=== PATIENT | male | born 1945 | race Caucasian/White ===

== ENCOUNTER 2018-07-29 03:32 | Inpatient (IN) ==
[2018-07-29 03:46] LABS: Basophils # 0.1 K/mm3 (0-0.2); Basophils % 0.3 % (0.1-2.0); Eosinophils % 0.2 % (0.1-12.0); Hematocrit 44.6 % (42.0-52.0); Hemoglobin 14.6 g/dL (14.1-18.0); Lymphocytes # 2.3 K/mm3 (0.7-4.5); Lymphocytes % 12.5 % (10-50); Mean Corpuscular HGB Conc 32.7 g/dL (31.8-35.4); Mean Corpuscular Hemoglobin 29.4 pg (27.0-31.2); Mean Corpuscular Volume 89.8 fl (80-94); Mean Platelet Volume 9.1 fl (7.4-10.4); Monocytes # 1.2 K/mm3 (0.1-1.0); Monocytes % 6.5 % (1.7-9.3); Neutrophils % 80.6 % (37.0-80.0); Platelet Count 302 K/mm3 (142-424); Red Blood Count 4.96 M/mm3 (4.60-6.20); Red Cell Distribution Width 13.9 % (11.5-17.5); White Blood Count 18.6 K/mm3 (4.8-10.8)
[2018-07-29 04:03] LABS: Anion Gap 18.9 mEq/L (5-15); Potassium 3.9 mmoL/L (3.5-5.1)
--- NOTE | 2018-07-29 04:25 | Emergency Department Note ---
ED Disposition Clinical Impression: Tobacco use ST elevation myocardial infarction (STEMI) Qualifiers: Involved coronary artery: unspecified coronary artery Qualified Code(s): I21.3 - ST elevation (STEMI) myocardial infarction of unspecified site Disposition: Admitted As Inpatient Condition on Discharge: Serious Referrals: Provider,Referral, [Primary Care Provider] - - Critical Care Critical Care Time: Yes Attestation: On 07/29/18, the high probability of a clinically significant, sudden or life threatening deterioration of the following system(s) required my full and direct attention, intervention and personal management. The time I documented below is in addition to time spent performing reported procedures but includes the following listed in this critical care notation. Total Critical Care Time: 120 Vital system(s) involved:: Circulatory Failure My critical care processes included: Assessment & monitoring of V/S, Initial and Re-exams, Data Review/Interpretation, Coordinating Care, Medication Orders and management, Documentation Medical Decision Making - Medical Records Medical records reviewed: Yes: I reviewed the patient's medical records. - [place] Inquiry Pt receiving controlled substance: No Vital Signs: 07/29/18 03:22 07/29/18 03:52 07/29/18 04:08 Temperature 98 F Temperature Source Oral Pulse Rate [Right Radial] 113 H 106 H 106 H Respiratory Rate 16 18 18 Blood Pressure [Right Arm] 123/75 116/73 115/77 Blood Pressure Mean [Right Arm] 91 87 89 Blood Pressure Source [Right Arm] Automatic Cuff Automatic Cuff Blood Pressure Position [Right Arm] Supine Supine 02 Sat by Pulse Oximetry 97 98 95 Oxygen Delivery Method Room Air Room Air - Lab Data Lab results reviewed: Yes: I reviewed the patient's lab results. Lab Results 07/29/18 03:30: WBC 18.6 H, RBC 4.96, Hgb 14.6, Hct 44.6, MCV 89.8, MCH 29.4, MCHC 32.7, RDW 13.9, Plt Count 302, MPV 9.1, Neut % (Auto) 80.6 H, Lymph % (Auto) 12.5, [place] % (Auto) 6.5, Eos % (Auto) 0.2, Baso % (Auto) 0.3, Neut # (Auto) 15.0 H, Lymph # (Auto) 2.3, [place] # (Auto) 1.2 H, Eos # (Auto) 0.0, Baso # (Auto) 0.1 07/29/18 03:30: Sodium 136, Potassium 3.9, Chloride 99, Carbon Dioxide 22, Anion Gap 18.9 H, BUN 22 H, Creatinine 1.01, Estimated Creat Clear 77, Estimated GFR 72, Est GFR ( Amer) 88, Glucose 124 H, Calcium 9.0, Troponin I 40.87 H Result diagrams: 07/29/18 03:30 07/29/18 03:30 Orders (Tests/Meds): ED MEDICATIONS Generic Name Dose Route Start Last Admin Trade Name Freq PRN Reason Stop Dose Admin Nitroglycerin/Dextrose 250 mls @ 3 mls/hr 07/29/18 04:15 Nitroglycerin 50mg/250ml D5w IV 08/28/18 04:14 .Q24H SHIRA Protocol 10 MCG/MIN Discontinued Medications Generic Name Dose Route Start Last Admin Trade Name Freq PRN Reason Stop Dose Admin Nitroglycerin 1 gm 07/29/18 03:28 07/29/18 03:33 Nitroglycerin 1 Inch Oint Udp TD 07/29/18 03:29 1 gm ONCE ONE Administration ORDERS Category Date Time Status XR chest 2V Stat Exams 07/29/18 03:28 Taken Complete Blood Count Auto Diff Stat Lab 07/29/18 03:30 Results 12-lead EKG Request [ECG Request by /Arnoldo] Stat Y 07/29/18 04:11 Ordered - Radiology Data #1 Image(s): Chest Image Reviewed: Yes I reviewed the patient's radiology image Preliminary Findings: Normal/NAD - ECG Data Tracing #1 Arrhythmias present: sinus tach Ischemic changes: other (st depression) ECG compared to prior tracings: there are no prior tracings available for comparison Tracing #2 Arrhythmias present: sinus tach Ischemic changes: other (st depression) Tracing #3 Normal Sinus Rhythm: Yes Ischemic changes: acute STEMI, ST elevation - Physician Consults Physician Consulted: basil Reason -: Pt condition Additional Consult: sound Reason -: Admission Chest Pain HPI - General Chief Complaint: Chest Pain Stated Complaint: Chest Pain Time Seen by Provider: 07/29/18 03:35 Mode of Arrival: EMS Source of Information: Patient, EMS, Medical Record Limitations: No Limitations Description of Symptoms (Recalled from ER Triage Doc. by RN): pt states he began having chest pain at approx 0100 this am. 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 pt states his pain has improved and is rating pain midsternal at a 6/10. - History of Present Illness HPI narrative: acute onset of ant chest pain tonight at rest and has had pain like this in past which has went away but not tonight - no known heart disease and he has no diabetes but does smoke no gi bleed - MD complaint: chest pain indicative of cardiac Onset (ago): hour(s) Duration: constant Activity at onset: during rest Pain location: substernal Severity: severe Quality: sharp Pain radiation: LUE Associated symptoms: nausea Risk Factors for CAD: Family Hx of CAD, Smoking Treatments prior to or on arrival for Cardiac Chest Pain: aspirin, nitroglycerin - KODAK Score Non-Stemi Age of patient: 65 yrs or more Number of risk factors for CAD: Presence of 3 or more Prior coronary artery stenosis(seen in coronary angiography): Less than 50% ST-Segment deviation on ECG (more than 1 min): Present Prior aspirin intake: No ASA in the last 7 days Severe anginal chest pain: Two or more episodes in last 24 hours Elevated cardiac markers(CK-MB or troponin): Present Non-Stemi Risk Score: 5 - Related Data Home Medications Medication Instructions Recorded Confirmed Gabapentin [Neurontin 300mg 300 mg PO BID 07/29/18 07/29/18 capsule] Allergies Allergy/AdvReac Type Severity Reaction Status Date / Time No Known Allergies Allergy Verified 07/29/18 03:[address] [facility] History I have reviewed the patient's past medical history: Yes Medical History: Denies:: Cancer, Diabetes Mellitus Type 1, Diabetes Mellitus Type 2, MRSA Amputation: No - Social History Smoking Status: Current every day smoker Alcohol Intake: never - Psychiatric History Expresses thoughts of harming self/others: None Suicide Plan Description: No Plan ROS Obtained: Yes All systems reviewed & no additional complaints - Constitutional Constitutional: Denies fever(s) - Eyes Eyes: Denies change in vision - ENT Ears, Nose, Mouth, and Throat: Denies sore throat - Cardiovascular Cardiovascular: Reports chest pain - Respiratory Respiratory: No cough - Gastrointestinal Gastrointestingal: Denies: abdominal pain - Genitourinary Male Genitourinary: Denies hematuria - Musculoskeletal Musculoskeletal: Denies joint pain - Integumentary/Breasts Skin/Breast: Denies rash - Neurologic Neurologic: Denies seizure-like activity Physical Exam - General General appearance: alert - Head Head exam: normocephalic - Eye Eye exam: Present: PERRL, EOMI - ENT ENT exam: Present: mucous membranes dry - Neck Neck exam: Present: trachea midline - Respiratory Respiratory exam: Present: normal lung sounds bilaterally - Cardiovascular Cardiovascular exam: Present: regular rate, systolic murmur, +S4 - Abdominal Exam Abdominal exam: Present: soft - Extremities Exam Extremities exam: Absent: calf tenderness - Neurological Exam Neurological exam: Present: alert, oriented X3, CN II-XII intact - Psychiatric Psychiatric exam: Present: normal affect - Skin Skin exam: Absent: rash
[2018-07-29 06:25] LABS: Anisocytosis 1+; Lymphocytes % 14 % (10-50); Monocytes % 4 % (2-9); Neutrophils % 81 % (42-76); Stomatocytes 1+; Total Cells Counted 100
--- NOTE | 2018-07-29 07:52 | Pharmacy Consult Notes ---
[facility] Pharmacy VTE Monitoring - Patient Demographics Admission date: 07/29/18 Report Date: 07/29/18 Time: 07:51 Allergies/Adverse Reactions: Patient Allergies No Known Allergies Allergy (Verified 07/29/18 03:27) Height: 1.83 m Weight: 83.915 kg Patient Problems: Current Active Problems ST elevation myocardial infarction (STEMI) (Acute) Tobacco use (Acute) - VTE Risk Labs: VTE Related Lab Results Hgb 14.6 g/dL (14.1-18.0) 07/29/18 03:30 Hct 44.6 % (42.0-52.0) 07/29/18 03:30 Plt Count 302 K/mm3 (142-424) 07/29/18 03:30 BUN 22 mg/dL (7-18) H 07/29/18 03:30 Creatinine 1.01 mg/dL (0.70-1.30) 07/29/18 03:30 Estimated Creat Clear 77 mL/min (50-200) 07/29/18 03:30 - Prophylaxis VTE Prophylaxis Ordered?: Yes Types of VTE Prophylaxis: TEDS Knee High Location of Applied Device: Bilateral Lower Extremeties - VTE Diagnosis Confirmed Treatment or plan recommended: Continue Current Treatment
--- NOTE | 2018-07-29 09:04 | Consult Report ---
Addendum entered and electronically signed by LUZMA Cam 07/29/18 15:29: Called by nursing staff to see patient about 1500 due to low blood pressure and a change in rate and rhythm. Systolic pressure was noted to be at 62 mmHg with telemetry and EKG showing sinus bradycardia with intermittent dropped beats in a bigeminal and trigeminal pattern. Patient did receive 3 different beta-severino doses today including metoprolol, Coreg and bisoprolol which is likely the reason for the hypotension and bradycardia, there does not appear to be any indication of sepsis. Patient was placed in Trendelenburg position, given IV fluid bolus and started on IV Adis-Synephrine with half milligram of glucagon to try and counteract the effect of the beta-severino. Within minutes the patient's blood pressure and cardiac rate and rhythm stabilized with sinus rhythm in the 80s. Patient was awake and talking again. Parameters for the Adis-Synephrine are heart rate above 60 but below 100 bpm and systolic blood pressure above 90 mm Hg. Patient will need to remain in the hospital through the weekend. Original Note: History of Present Illness Consult date: 07/29/18 Requesting physician: Margaret Frausto Consult reason: chest pain Chief complaint: chest pain, STEMI Additional Medical History:: 1. tobacco use, ongoing 2. History of chronic pain for which she takes gabapentin 3. Coronary artery disease A. Acute ST elevation [place], 07/29/2018 B. Cardiac catheterization revealing Critical ostial proximal left main disease. Successful stenting of the ostial proximal left main artery critical disease reduced to 0% with 1 drug-eluting stent. Moderate disease in the mid LAD. Ostially occluded dominant right coronary artery which fills via left to right collaterals. Severe left ventricular dysfunction with reduced ejection fraction at 35%. Severely elevated LVEDP History of present illness: 73-year-old white male tobacco user with history of chronic pain syndrome presented to the emergency department for unrelenting chest and left arm discomfort. Patient relates intermittent activity related discomfort for several months but with onset of symptoms about 1:00 yesterday afternoon that did not resolve with rest. EKG in the emergency department showed acute ST elevation NE with inferior and anterior ST elevation. Patient was taken urgently to the cardiac Application Manager which revealed ostial left main stenosis which was successfully stented. Patient has a chronic RCA occlusion with left to right collaterals. Ejection fraction noted to be 35% with a left ventricular end-diastolic pressure of 40 mmHg. [facility] History Medical History: Denies:: Cancer, Diabetes Mellitus Type 1, Diabetes Mellitus Type 2, MRSA Amputation: No - *Social History Smoking Status: Current every day smoker Alcohol Intake: never - Psychiatric History Expresses thoughts of harming self/others: None Suicide Plan Description: No Plan Meds Home Medications Medication Instructions Recorded Confirmed Type Gabapentin [Neurontin 300mg 300 mg PO BID 07/29/18 07/29/18 History capsule] Allergies Allergy/AdvReac Type Severity Reaction Status Date / Time No Known Allergies Allergy Verified 07/29/18 03:27 Review of Systems - *Cardiovascular Reports chest pain, Reports shortness of breath, Reports shortness of breath with activity - *Respiratory Reports shortness of breath, Reports shortness of breath with activity - *Gastrointestinal Denies abdominal pain - *Genitourinary Denies blood in urine - *Musculoskeletal Reports joint pain - *Neurologic Denies seizure-like activity Exam Vital signs and Labs for Last 24 Hours: Temp Pulse Resp BP Pulse Ox 99.5 F 108 H 22 133/74 93 L 07/29/18 07:25 07/29/18 07:25 07/29/18 07:25 07/29/18 07:25 07/29/18 07:25 Laboratory Results - last 24 hr 07/29/18 03:30: WBC 18.6 H, RBC 4.96, Hgb 14.6, Hct 44.6, MCV 89.8, MCH 29.4, MCHC 32.7, RDW 13.9, Plt Count 302, MPV 9.1, Neut % (Auto) 80.6 H, Lymph % (Auto) 12.5, [place] % (Auto) 6.5, Eos % (Auto) 0.2, Baso % (Auto) 0.3, Neut # (Auto) 15.0 H, Lymph # (Auto) 2.3, [place] # (Auto) 1.2 H, Eos # (Auto) 0.0, Baso # (Auto) 0.1, Total Counted 100, Neutrophils % (Manual) 81 H, Lymphocytes % (Manual) 14, Monocytes % (Manual) 4, Basophils % (Manual) 1.0, Platelet Estimate Normal, Anisocytosis 1+, Stomatocytes 1+ 07/29/18 03:30: Sodium 136, Potassium 3.9, Chloride 99, Carbon Dioxide 22, Anion Gap 18.9 H, BUN 22 H, Creatinine 1.01, Estimated Creat Clear 77, Estimated GFR 72, Est GFR ( Amer) 88, Glucose 124 H, Calcium 9.0, Troponin I 40.87 H I & O for Last 24 hours: Intake & Output 07/26/18 07/27/18 07/28/18 07/29/18 11:59 11:59 11:59 11:59 Intake Total 620 / 620 Balance 620 / 620 Weight 185 lb - *Routine Neck Exam Present: supple. Absent: JVD, carotid bruit - *Routine Respiratory Exam Present: CTA bilaterally. Absent: accessory muscle use, rales, rhonchi, wheezes - *Routine Cardiovascular Exam Present: RRR. Absent: murmur, gallop, rubs - *Routine Abdominal Exam Present: soft. Absent: tenderness, distended, guarding - *Routine Extremities Exam Absent: edema, calf tenderness - *Routine Neurological Exam Present: alert, oriented X3, moving all extremities Assessment and Plan (1) Ischemic cardiomyopathy Current visit: Yes Status: Acute Category: Medical Code(s): I25.5 - Ischemic cardiomyopathy (2) Systolic congestive heart failure with reduced left ventricular function, NYHA class 3 Current visit: Yes Status: Acute Category: Medical Code(s): I50.20 - Unspecified systolic (congestive) heart failure (3) Chronic pain syndrome Current visit: Yes Status: Acute Category: Medical Code(s): G89.4 - Chronic pain syndrome (4) ST elevation myocardial infarction (STEMI) Current visit: Yes Status: Acute Qualifiers: Involved coronary artery: unspecified coronary artery Qualified Code(s): I21.3 - ST elevation (STEMI) myocardial infarction of unspecified site Category: Medical Code(s): I21.3 - ST elevation (STEMI) myocardial infarction of unspecified site (5) Tobacco use Current visit: Yes Status: Acute Category: Medical Code(s): Z72.0 - Tobacco use - Assessment and plan all Dx Assessment and Plan for all problems:: 1. Continue aspirin and Brilinta. 2. Start ROD inhibitor and carvedilol or bisoprolol therapy due to reduced systolic ejection fraction and tachycardia. 3. Will obtain an echocardiogram to further define the patient's left ventricular size and function and valve status.
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
--- NOTE | 2018-07-29 13:30 | Cardiology Report ---
PROCEDURE: 2-D M-mode and color Doppler study INDICATIONS FOR THE TEST: Chest pain+ COPD Heart Murmur Tobacco Smoking+ Palpitations Fatigue Syncope Edema Hypertension Diabetes Mellitus Rheumatic Fever SOB+GUZMAN Obesity Hyperlipidemia Family History HD Additional History STEMI 07/29/18, EF 35% on cath, CM, CHF PATIENT INFORMATION HEIGHT: 72 WEIGHT: 185 GENDER: Male B/P: 96/67 2-D/M-MODE INTERPRETATION: 2-D MEASUREMENTS OBSERVED VALUES IN CMS Right Ventricular Dimension (RVDd) 2.7 Interventricular Septum (Thickness)(IVsd) 1.2 Left Ventricular Internal Dimensions(LVIDd) 5.2 Left Ventricular Posterior Wall (Thickness)(LVPWd) 1.2 Aortic Root 3.2 Aortic Cusp Separation 1.9 Left Atrial Dimensions (LAD) 4.3 2D 1. Technically difficult study because of the patient's factor and poor acoustic windows, repeat study with Definity contrast is recommended. 2. The left atrium is mildly enlarged, left ventricle is normal size, mild concentric left ventricular hypertrophy, visually estimated ejection fraction is probably 40%, there appears to be inferobasal, distal septum and apical wall hypokinesis. A repeat study with Definity contrast is recommended. 3. The right atrium and right ventricle are mildly enlarged with normal contractility. 4. The aortic valve is minimally thickened and fibrosed. 5. The mitral and tricuspid valve leaflets are minimally thickened. 6. The pulmonic valve is poorly visualized. 7. No significant pericardial effusion noted. DOPPLER INTERROGATION: Doppler interrogation of the aortic, mitral and tricuspid valvular presence of moderate mitral and mild tricuspid regurgitation, tricuspid regurgitation jet velocity is inadequate for calculation of the right ventricular systolic pressure, grade 1 diastolic dysfunction seen with tissue Doppler evidence of raised left atrial pressure. CONCLUSION: 1. Technically difficult study because of the patient's factors and poor acoustic windows, repeat study with Definity contrast is recommended. 2. Mildly enlarged left atrium, normal left ventricular size, mild concentric left ventricular hypertrophy, visually estimated ejection fraction 40% with multiple segmental wall motion abnormality described above, repeat study with Definity contrast is recommended. 3. Moderate mitral and mild tricuspid regurgitation 4. Grade 1 diastolic dysfunction seen with tissue Doppler evidence of raised left atrial pressure. 5. No significant pericardial effusion noted.
[2018-07-30 07:35] LABS: Basophils # 0.1 K/mm3 (0-0.2); Basophils % 0.2 % (0.1-2.0); Hematocrit 38.8 % (42.0-52.0); Hemoglobin 12.5 g/dL (14.1-18.0); Lymphocytes # 3.5 K/mm3 (0.7-4.5); Lymphocytes % 13.4 % (10-50); Mean Corpuscular HGB Conc 32.2 g/dL (31.8-35.4); Mean Corpuscular Hemoglobin 29.5 pg (27.0-31.2); Mean Corpuscular Volume 91.5 fl (80-94); Mean Platelet Volume 8.8 fl (7.4-10.4); Monocytes # 1.8 K/mm3 (0.1-1.0); Monocytes % 6.9 % (1.7-9.3); Neutrophils # 20.5 K/mm3 (1.8-7.8); Neutrophils % 79.4 % (37.0-80.0); Platelet Count 312 K/mm3 (142-424); Red Blood Count 4.24 M/mm3 (4.60-6.20); Red Cell Distribution Width 14.1 % (11.5-17.5); White Blood Count 25.8 K/mm3 (4.8-10.8)
[2018-07-30 07:46] LABS: Chol/HDL Ratio 8.3 (1-3.5)
--- NOTE | 2018-07-30 09:07 | Progress Note ---
Addendum entered and electronically signed by LUZMA Jefferson 07/30/18 09:26: Abx changed from doxy to zosyn and levaquin d/t elevated WBC. Sputum and blood cultures have been ordered. Original Note: <Ailin Osborn - Last Filed: 07/30/18 09:04> Internal Medicine - PN: Subj *Date: 07/30/18 *Time: 09:04 Interval history: Patient did not have a good day yesterday. According to nursing staff, his blood pressure decreased and cardiology had to come and see him and adjust medications and place him on a Adis-Synephrine drip. His white blood cell count has increased and he has had some blood in his stool. The patient states he was able to rest last night because he was given some medication to help him sleep. His blood pressure is stable this morning on the drip. Exam Vital signs and Labs for Last 24 Hours: Temp Pulse Resp BP Pulse Ox 98.7 F 82 18 104/67 L 95 07/29/18 21:19 07/30/18 06:00 07/29/18 21:19 07/30/18 06:00 07/30/18 08:34 Laboratory Results - last 24 hr 07/29/18 03:30: Magnesium 2.3 H 07/29/18 14:35: POC Glucose 144 H 07/29/18 17:02: Stool Occult Blood Positive A 07/30/18 07:10: WBC 25.8 H* D, RBC 4.24 L, Hgb 12.5 L, Hct 38.8 L, MCV 91.5, MCH 29.5, MCHC 32.2, RDW 14.1, Plt Count 312, MPV 8.8, Neut % (Auto) 79.4, Lymph % (Auto) 13.4, [place] % (Auto) 6.9, Eos % (Auto) 0.0 L, Baso % (Auto) 0.2, Neut # (Auto) 20.5 H, Lymph # (Auto) 3.5, Long # (Auto) 1.8 H, Eos # (Auto) 0.0, Baso # (Auto) 0.1 07/30/18 07:10: Triglycerides 139, Cholesterol 182, LDL Cholesterol 132 H, VLDL Cholesterol 28, HDL Cholesterol 22 L, Cholesterol/HDL Ratio 8.3 H I & O for Last 24 hours: Intake & Output 07/27/18 07/28/18 07/29/18 07/30/18 11:59 11:59 11:59 11:59 Intake Total 620 / 620 3390 / 3390 Output Total 400 / 400 925 / 925 Balance 220 / 220 2465 / 2465 Weight 185 lb 196 lb 9 oz - *Routine Respiratory Exam Present: wheezes (faint throughout), crackles (right base) - *Routine Cardiovascular Exam Present: RRR - *Routine Abdominal Exam Present: soft, normoactive bowel sounds. Absent: tenderness - *Routine Extremities Exam Present: edema (trace). Absent: cyanosis, clubbing Assessment and Plan (1) Ischemic cardiomyopathy Current visit: Yes Status: Acute Category: Medical Code(s): I25.5 - Ischemic cardiomyopathy (2) Systolic congestive heart failure with reduced left ventricular function, NYHA class 3 Current visit: Yes Status: Acute Category: Medical Code(s): I50.20 - Unspecified systolic (congestive) heart failure (3) Chronic pain syndrome Current visit: Yes Status: Acute Category: Medical Code(s): G89.4 - Chronic pain syndrome (4) ST elevation myocardial infarction (STEMI) Current visit: Yes Status: Acute Qualifiers: Involved coronary artery: unspecified coronary artery Qualified Code(s): I21.3 - ST elevation (STEMI) myocardial infarction of unspecified site Category: Medical Code(s): I21.3 - ST elevation (STEMI) myocardial infarction of unspecified site (5) Tobacco use Current visit: Yes Status: Acute Category: Medical Code(s): Z72.0 - Tobacco use (6) Right lower lobe pneumonia Current visit: Yes Status: Acute Qualifiers: Pneumonia type: due to unspecified organism Qualified Code(s): J18.1 - Lobar pneumonia, unspecified organism Category: Medical Code(s): J18.1 - Lobar pneumonia, unspecified organism - Assessment and plan all Dx Assessment and Plan for all problems:: Will likely need an antibiotic change due to increased white blood cell count even on doxycycline with his pneumonia. Nursing is holding his lisinopril this morning due to the fact that he is on the Adis-Synephrine drip. His H&H has dropped slightly and his stool was positive for blood. Will discuss further care with Dr. corona. Margaret Krause - Last Filed: 07/30/18 10:50> Exam Vital signs and Labs for Last 24 Hours: Temp Pulse Resp BP Pulse Ox 98.7 F 90 18 104/67 L 95 07/29/18 21:19 07/30/18 08:00 07/29/18 21:19 07/30/18 06:00 07/30/18 08:34 Laboratory Results - last 24 hr 07/29/18 03:30: Magnesium 2.3 H 07/29/18 14:35: POC Glucose 144 H 07/29/18 17:02: Stool Occult Blood Positive A 07/30/18 07:10: WBC 25.8 H* D, RBC 4.24 L, Hgb 12.5 L, Hct 38.8 L, MCV 91.5, MCH 29.5, MCHC 32.2, RDW 14.1, Plt Count 312, MPV 8.8, Neut % (Auto) 79.4, Lymph % (Auto) 13.4, Long % (Auto) 6.9, Eos % (Auto) 0.0 L, Baso % (Auto) 0.2, Neut # (Auto) 20.5 H, Lymph # (Auto) 3.5, Long # (Auto) 1.8 H, Eos # (Auto) 0.0, Baso # (Auto) 0.1, Total Counted 100, Neutrophils % (Manual) 82 H, Lymphocytes % (Manual) 11, Monocytes % (Manual) 7, Platelet Estimate Normal, RBC Morphology Normal 07/30/18 07:10: Triglycerides 139, Cholesterol 182, LDL Cholesterol 132 H, VLDL Cholesterol 28, HDL Cholesterol 22 L, Cholesterol/HDL Ratio 8.3 H I & O for Last 24 hours: Intake & Output 07/27/18 07/28/18 07/29/18 07/30/18 11:59 11:59 11:59 11:59 Intake Total 620 / 620 3390 / 3390 Output Total 400 / 400 925 / 925 Balance 220 / 220 2465 / 2465 Weight 185 lb 196 lb 9 oz Assessment and Plan (1) Sepsis Current visit: Yes Status: Acute Qualifiers: Sepsis type: sepsis due to unspecified organism Qualified Code(s): A41.9 - Sepsis, unspecified organism Category: Medical Code(s): A41.9 - Sepsis, unspecified organism 2/2 RLL PNA. (2) Ischemic cardiomyopathy Current visit: Yes Status: Acute Category: Medical Code(s): I25.5 - Ischemic cardiomyopathy (3) Systolic congestive heart failure with reduced left ventricular function, NYHA class 3 Current visit: Yes Status: Acute Category: Medical Code(s): I50.20 - Unspecified systolic (congestive) heart failure (4) Chronic pain syndrome Current visit: Yes Status: Acute Category: Medical Code(s): G89.4 - Chronic pain syndrome (5) ST elevation myocardial infarction (STEMI) Current visit: Yes Status: Acute Qualifiers: Involved coronary artery: unspecified coronary artery Qualified Code(s): I21.3 - ST elevation (STEMI) myocardial infarction of unspecified site Category: Medical Code(s): I21.3 - ST elevation (STEMI) myocardial infarction of unspecified site (6) Tobacco use Current visit: Yes Status: Acute Category: Medical Code(s): Z72.0 - Tobacco use (7) Right lower lobe pneumonia Current visit: Yes Status: Acute Qualifiers: Pneumonia type: due to unspecified organism Qualified Code(s): J18.1 - Lobar pneumonia, unspecified organism Category: Medical Code(s): J18.1 - Lobar pneumonia, unspecified organism - Assessment and plan all Dx Assessment and Plan for all problems:: We will change antibiotics to Zosyn, Vanc, cefepime for an elevated white count. Will refrain from morphine and other pain medications except for tramadol as he is blood pressure is low with systolics on 90s and diastolic on 60s. We will give tramadol for pain. Will decrease lisinopril to 2.5 mg and bisoprolol to 2.5 mg. Continue adis-drip and maintain map of 55. His positive fecal occult blood was explained by taking a total of 1000 milligrams of aspirin a day, combination of pills and B-Visc powders.
[2018-07-30 09:11] LABS: Lymphocytes % 11 % (10-50); Monocytes % 7 % (2-9); Neutrophils % 82 % (42-76); Total Cells Counted 100
[2018-07-30 09:12] LABS: RBC Morphology Normal
--- NOTE | 2018-07-30 13:55 | Pharmacy Consult Notes ---
- Pharmacy Consult Date: 07/30/18 Time: 13:53 Referring provider: DR. LINARES Reason for Consult:: VANCOMYCIN DOSING Allergies and ADEs:: Allergies Allergy/AdvReac Type Severity Reaction Status Date / Time No Known Allergies Allergy Verified 07/29/18 03:27 Home Medications:: Home Medications Medication Instructions Recorded Confirmed Type Gabapentin [Neurontin 300mg 300 mg PO BID 07/29/18 07/29/18 History capsule] Height: 1.83 m Weight: 89.159 kg Laboratory Results:: Laboratory Results - last 24 hr 07/29/18 14:35: POC Glucose 144 H 07/29/18 17:02: Stool Occult Blood Positive A 07/30/18 07:10: WBC 25.8 H* D, RBC 4.24 L, Hgb 12.5 L, Hct 38.8 L, MCV 91.5, MCH 29.5, MCHC 32.2, RDW 14.1, Plt Count 312, MPV 8.8, Neut % (Auto) 79.4, Lymph % (Auto) 13.4, [place] % (Auto) 6.9, Eos % (Auto) 0.0 L, Baso % (Auto) 0.2, Neut # (Auto) 20.5 H, Lymph # (Auto) 3.5, [place] # (Auto) 1.8 H, Eos # (Auto) 0.0, Baso # (Auto) 0.1, Total Counted 100, Neutrophils % (Manual) 82 H, Lymphocytes % (Manual) 11, Monocytes % (Manual) 7, Platelet Estimate Normal, RBC Morphology Normal 07/30/18 07:10: Triglycerides 139, Cholesterol 182, LDL Cholesterol 132 H, VLDL Cholesterol 28, HDL Cholesterol 22 L, Cholesterol/HDL Ratio 8.3 H 07/30/18 11:46: Lactate 1.7 Medical History: Denies:: Cancer, Diabetes Mellitus Type 1, Diabetes Mellitus Type 2, MRSA Assessment and Plan (1) Sepsis Current visit: Yes Status: Acute Qualifiers: Sepsis type: sepsis due to unspecified organism Qualified Code(s): A41.9 - Sepsis, unspecified organism Category: Medical Code(s): A41.9 - Sepsis, unspecified organism (2) Ischemic cardiomyopathy Current visit: Yes Status: Acute Category: Medical Code(s): I25.5 - Ischemic cardiomyopathy (3) Systolic congestive heart failure with reduced left ventricular function, NYHA class 3 Current visit: Yes Status: Acute Category: Medical Code(s): I50.20 - Unspecified systolic (congestive) heart failure (4) Chronic pain syndrome Current visit: Yes Status: Acute Category: Medical Code(s): G89.4 - Chronic pain syndrome (5) ST elevation myocardial infarction (STEMI) Current visit: Yes Status: Acute Qualifiers: Involved coronary artery: unspecified coronary artery Qualified Code(s): I21.3 - ST elevation (STEMI) myocardial infarction of unspecified site Category: Medical Code(s): I21.3 - ST elevation (STEMI) myocardial infarction of unspecified site (6) Tobacco use Current visit: Yes Status: Acute Category: Medical Code(s): Z72.0 - Tobacco use (7) Right lower lobe pneumonia Current visit: Yes Status: Acute Qualifiers: Pneumonia type: due to unspecified organism Qualified Code(s): J18.1 - Lobar pneumonia, unspecified organism Category: Medical Code(s): J18.1 - Lobar pneumonia, unspecified organism - Assessment and plan all Dx Assessment and Plan for all problems:: BASED ON PATIENT'S FACTORS, STARTING WITH VANCOMYCIN 1250 MG Q12H AT THIS TIME. WILL OBTAIN TROUGH LEVEL TOMORROW PRIOR TO 3RD DOSE DUE TO CONCURRENT USE OF ZOSYN. PHARMACY WILL FOLLOW DAILY AND ADJUST APPROPRIATE. MORENA CRUZ, PHARMD
[2018-07-31 06:58] LABS: Basophils # 0.1 K/mm3 (0-0.2); Basophils % 0.2 % (0.1-2.0); Eosinophils % 0.1 % (0.1-12.0); Hematocrit 36.5 % (42.0-52.0); Hemoglobin 11.8 g/dL (14.1-18.0); Lymphocytes # 2.1 K/mm3 (0.7-4.5); Lymphocytes % 10.4 % (10-50); Mean Corpuscular HGB Conc 32.2 g/dL (31.8-35.4); Mean Corpuscular Hemoglobin 29.5 pg (27.0-31.2); Mean Corpuscular Volume 91.6 fl (80-94); Mean Platelet Volume 8.8 fl (7.4-10.4); Monocytes # 1.2 K/mm3 (0.1-1.0); Monocytes % 6.2 % (1.7-9.3); Neutrophils # 16.3 K/mm3 (1.8-7.8); Platelet Count 256 K/mm3 (142-424); Red Blood Count 3.99 M/mm3 (4.60-6.20); White Blood Count 19.6 K/mm3 (4.8-10.8)
[2018-07-31 09:14] LABS: Lymphocytes % 7 % (10-50); Monocytes % 12 % (2-9); Neutrophils % 81 % (42-76); RBC Morphology Normal; Total Cells Counted 100
--- NOTE | 2018-07-31 10:33 | Progress Note ---
Internal Medicine - PN: Subj *Date: 07/31/18 *Time: 10:30 Interval history: Patient doing better than yesterday. Exam Vital signs and Labs for Last 24 Hours: Temp Pulse Resp BP Pulse Ox 97.6 F 86 20 122/75 99 07/31/18 08:15 07/31/18 10:00 07/31/18 10:00 07/31/18 10:00 07/31/18 10:00 Laboratory Results - last 24 hr 07/30/18 11:46: Lactate 1.7 07/31/18 06:25: WBC 19.6 H, RBC 3.99 L, Hgb 11.8 L, Hct 36.5 L, MCV 91.6, MCH 29.5, MCHC 32.2, RDW 14.0, Plt Count 256, MPV 8.8, Neut % (Auto) 83.0 H, Lymph % (Auto) 10.4, [place] % (Auto) 6.2, Eos % (Auto) 0.1, Baso % (Auto) 0.2, Neut # (Auto) 16.3 H, Lymph # (Auto) 2.1, [place] # (Auto) 1.2 H, Eos # (Auto) 0.0, Baso # (Auto) 0.1, Total Counted 100, Neutrophils % (Manual) 81 H, Lymphocytes % (Manual) 7 L, Monocytes % (Manual) 12 H, Platelet Estimate Normal, RBC Morphology Normal I & O for Last 24 hours: Intake & Output 07/28/18 07/29/18 07/30/18 07/31/18 11:59 11:59 11:59 11:59 Intake Total 620 / 620 3390 / 3390 1950 / 1950 Output Total 400 / 400 925 / 925 975 / 975 Balance 220 / 220 2465 / 2465 975 / 975 Weight 185 lb 196 lb 9 oz 196 lb 9 oz - *Routine HEENT Exam Head: Present: normocephalic Eye: Present: EOMI, PERRL ENT: Present: mucous membranes moist - *Routine Neck Exam Present: supple - *Routine Respiratory Exam Present: decreased breath sounds - *Routine Cardiovascular Exam Present: RRR - *Routine Abdominal Exam Present: soft, normoactive bowel sounds - *Routine Extremities Exam Absent: edema - *Routine Skin Exam Present: intact - *Routine Neurological Exam Present: alert, oriented X3 - Routine Psychiatric Exam Present: normal affect Assessment and Plan (1) Sepsis Current visit: Yes Status: Acute Qualifiers: Sepsis type: sepsis due to unspecified organism Qualified Code(s): A41.9 - Sepsis, unspecified organism Category: Medical Code(s): A41.9 - Sepsis, unspecified organism (2) Ischemic cardiomyopathy Current visit: Yes Status: Acute Category: Medical Code(s): I25.5 - Ischemic cardiomyopathy (3) Systolic congestive heart failure with reduced left ventricular function, [place] YHA class 3 Current visit: Yes Status: Acute Category: Medical Code(s): I50.20 - Unspecified systolic (congestive) heart failure (4) Chronic pain syndrome Current visit: Yes Status: Acute Category: Medical Code(s): G89.4 - Chronic pain syndrome (5) ST elevation myocardial infarction (STEMI) Current visit: Yes Status: Acute Qualifiers: Involved coronary artery: unspecified coronary artery Qualified Code(s): I21.3 - ST elevation (STEMI) myocardial infarction of unspecified site Category: Medical Code(s): I21.3 - ST elevation (STEMI) myocardial infarction of unspecified site (6) Tobacco use Current visit: Yes Status: Acute Category: Medical Code(s): Z72.0 - To bacco use (7) Right lower lobe pneumonia Current visit: Yes Status: Acute Qualifiers: Pneumonia type: due to unspecified organism Qualified Code(s): J18.1 - Lobar pneumonia, unspecified organism Category: Medical Code(s): J18.1 - Lobar pneumonia, unspecified organism - Assessment and plan all Dx Assessment and Plan for all problems:: will continue IV abx and pressors.
[2018-08-01 06:39] LABS: Basophils % 0.3 % (0.1-2.0); Eosinophils % 0.3 % (0.1-12.0); Hematocrit 34.4 % (42.0-52.0); Hemoglobin 11.1 g/dL (14.1-18.0); Lymphocytes # 2.3 K/mm3 (0.7-4.5); Mean Corpuscular HGB Conc 32.2 g/dL (31.8-35.4); Mean Corpuscular Hemoglobin 29.5 pg (27.0-31.2); Mean Corpuscular Volume 91.7 fl (80-94); Mean Platelet Volume 8.6 fl (7.4-10.4); Monocytes # 1.1 K/mm3 (0.1-1.0); Monocytes % 7.9 % (1.7-9.3); Neutrophils % 75.6 % (37.0-80.0); Platelet Count 262 K/mm3 (142-424); Red Blood Count 3.75 M/mm3 (4.60-6.20); Red Cell Distribution Width 14.1 % (11.5-17.5); White Blood Count 14.5 K/mm3 (4.8-10.8)
--- NOTE | 2018-08-01 08:23 | Progress Note ---
Subjective Date: 08/01/18 Time: 08:21 Principal diagnosis: STEMI Interval history: 73-year-old white male in bed eating breakfast in no acute distress. Much more alert and awake compared to last Wednesday evening. Patient states he is feeling better and is slowly starting to regain some strength back. He is only been ambulating from bed to his bathroom at this time. Upon discharge she will be going back home. His son does live with him. Review of telemetry reveals stable sinus rhythm. Review of notes over the weekend chest patient is now being treated for sepsis and lower lobe pneumonia with transient increase in white count prior to antibiotic change. Patient seems to be much improved this a.m. Exam Vital signs and Labs for Last 24 Hours: Temp Pulse Resp BP Pulse Ox 98.4 F 81 16 118/67 99 08/01/18 04:00 08/01/18 04:00 08/01/18 04:00 08/01/18 04:00 08/01/18 04:00 Laboratory Results - last 24 hr 07/31/18 06:25: Total Counted 100, Neutrophils % (Manual) 81 H, Lymphocytes % (Manual) 7 L, Monocytes % (Manual) 12 H, Platelet Estimate Normal, RBC Morphology Normal 08/01/18 06:00: WBC 14.5 H D, RBC 3.75 L, Hgb 11.1 L, Hct 34.4 L, MCV 91.7, MCH 29.5, MCHC 32.2, RDW 14.1, Plt Count 262, MPV 8.6, Neut % (Auto) 75.6, Lymph % (Auto) 16.0, [place] % (Auto) 7.9, Eos % (Auto) 0.3, Baso % (Auto) 0.3, Neut # (Auto) 11.0 H, Lymph # (Auto) 2.3, [place] # (Auto) 1.1 H, Eos # (Auto) 0.0, Baso # (Auto) 0.0 I & O for Last 24 hours: Intake & Output 07/29/18 07/30/18 07/31/18 08/01/18 11:59 11:59 11:59 11:59 Intake Total 620 / 620 3390 / 3390 1950 / 1950 340 / 340 Output Total 400 / 400 925 / 925 975 / 975 425 / 425 Balance 220 / 220 2465 / 2465 975 / 975 -85 / -85 Weight 185 lb 196 lb 9 oz 196 lb 9 oz 196 lb 3 oz Microbiology Reports for the Last 24 Hours: Microbiology 07/29/18 13:40 Blood Blood Culture - Preliminary NO GROWTH AFTER 48 HOURS 07/29/18 13:40 Blood Blood Culture - Preliminary NO GROWTH AFTER 48 HOURS - *Routine Respiratory Exam Present: CTA bilaterally. Absent: accessory muscle use, rales, rhonchi, wheezes - *Routine Cardiovascular Exam Present: RRR. Absent: murmur, gallop, rubs - *Routine Extremities Exam Absent: edema, calf tenderness Progress Note: A&P (1) Sepsis Status: Acute Current Visit: Yes (2) Ischemic cardiomyopathy Status: Acute Current Visit: Yes (3) Systolic congestive heart failure with reduced left ventricular function, [place] SUAZO class 3 Status: Acute Current Visit: Yes (4) Chronic pain syndrome Status: Acute Current Visit: Yes (5) ST elevation myocardial infarction (STEMI) Status: Acute Current Visit: Yes (6) Tobacco use Status: Acute Current Visit: Yes (7) Right lower lobe pneumonia Status: Acute Current Visit: Yes Assessment and Plan for All Diagnoses:: Continue low-dose bisoprolol and lisinopril as blood pressure and heart rate tolerate. Begin ambulating. Continue DAPT. Antibiotics ongoing per Dr. Frausto
--- NOTE | 2018-08-01 08:39 | Progress Note ---
<Leyla Galindo - Last Filed: 08/01/18 08:36> Internal Medicine - PN: Subj *Date: 08/01/18 *Time: 08:37 Interval history: Patient states he is feeling much better today. He did sleep some. He denies shortness of breath and chest pain. He blames a lot of his shortness of breath due to the antibiotics. He has ambulated to the bathroom without difficulty. He has an appetite now and is been eating better. Bowels are moving. Kidneys are functioning without problems. Exam Vital signs and Labs for Last 24 Hours: Temp Pulse Resp BP Pulse Ox 98.4 F 81 16 118/67 99 08/01/18 04:00 08/01/18 04:00 08/01/18 04:00 08/01/18 04:00 08/01/18 04:00 Laboratory Results - last 24 hr 07/31/18 06:25: Total Counted 100, Neutrophils % (Manual) 81 H, Lymphocytes % (Manual) 7 L, Monocytes % (Manual) 12 H, Platelet Estimate Normal, RBC Morphology Normal 08/01/18 06:00: WBC 14.5 H D, RBC 3.75 L, Hgb 11.1 L, Hct 34.4 L, MCV 91.7, MCH 29.5, MCHC 32.2, RDW 14.1, Plt Count 262, MPV 8.6, Neut % (Auto) 75.6, Lymph % (Auto) 16.0, [place] % (Auto) 7.9, Eos % (Auto) 0.3, Baso % (Auto) 0.3, Neut # (Auto) 11.0 H, Lymph # (Auto) 2.3, [place] # (Auto) 1.1 H, Eos # (Auto) 0.0, Baso # (Auto) 0.0 I & O for Last 24 hours: Intake & Output 07/29/18 07/30/18 07/31/18 08/01/18 11:59 11:59 11:59 11:59 Intake Total 620 / 620 3390 / 3390 1950 / 1950 340 / 340 Output Total 400 / 400 925 / 925 975 / 975 425 / 425 Balance 220 / 220 2465 / 2465 975 / 975 -85 / -85 Weight 185 lb 196 lb 9 oz 196 lb 9 oz 196 lb 3 oz Microbiology Reports for the Last 24 Hours: Microbiology 07/29/18 13:40 Blood Blood Culture - Preliminary NO GROWTH AFTER 48 HOURS 07/29/18 13:40 Blood Blood Culture - Preliminary NO GROWTH AFTER 48 HOURS - Constitutional no acute distress - *Routine Respiratory Exam Present: CTA bilaterally (Anteriorly and posteriorly) - *Routine Cardiovascular Exam Present: RRR (Monitor showing sinus rhythm) - *Routine Abdominal Exam Present: soft, normoactive bowel sounds. Absent: tenderness, distended - *Routine Extremities Exam Absent: edema, calf tenderness - *Routine Neurological Exam Present: alert, oriented X3 Assessment and Plan (1) Sepsis Current visit: Yes Status: Acute Category: Medical Code(s): A41.9 - Sepsis, unspecified organism (2) Ischemic cardiomyopathy Current visit: Yes Status: Acute Category: Medical Code(s): I25.5 - Ischemic cardiomyopathy (3) Systolic congestive heart failure with reduced left ventricular function, NYHA class 3 Current visit: Yes Status: Acute Category: Medical Code(s): I50.20 - Unspecified systolic (congestive) heart failure (4) Chronic pain syndrome Current visit: Yes Status: Acute Category: Medical Code(s): G89.4 - Chronic pain syndrome (5) ST elevation myocardial infarction (STEMI) Current visit: Yes Status: Acute Category: Medical Code(s): I21.3 - ST elevation (STEMI) myocardial infarction of unspecified site (6) Tobacco use Current visit: Yes Status: Acute Category: Medical Code(s): Z72.0 - Tobacco use (7) Right lower lobe pneumonia Current visit: Yes Status: Acute Category: Medical Code(s): J18.1 - Lobar pneumonia, unspecified organism - Assessment and plan all Dx Assessment and Plan for all problems:: White blood cell count has improved to 14.5. Patient remains off all pressors. We will continue with antibiotics. Increase out of bed activity. <Margaret Frausto - Last Filed: 08/01/18 10:51> Exam Vital signs and Labs for Last 24 Hours: Temp Pulse Resp BP Pulse Ox 98.6 F 88 15 103/59 L 97 08/01/18 08:00 08/01/18 08:00 08/01/18 08:00 08/01/18 08:00 08/01/18 08:00 Laboratory Results - last 24 hr 08/01/18 06:00: WBC 14.5 H D, RBC 3.75 L, Hgb 11.1 L, Hct 34.4 L, MCV 91.7, MCH 29.5, MCHC 32.2, RDW 14.1, Plt Count 262, MPV 8.6, Neut % (Auto) 75.6, Lymph % (Auto) 16.0, [place] % (Auto) 7.9, Eos % (Auto) 0.3, Baso % (Auto) 0.3, Neut # (Auto) 11.0 H, Lymph # (Auto) 2.3, [place] # (Auto) 1.1 H, Eos # (Auto) 0.0, Baso # (Auto) 0.0 I & O for Last 24 hours: Intake & Output 07/29/18 07/30/18 07/31/18 08/01/18 11:59 11:59 11:59 11:59 Intake Total 620 / 620 3390 / 3390 1950 / 1950 800 / 800 Output Total 400 / 400 925 / 925 975 / 975 425 / 425 Balance 220 / 220 2465 / 2465 975 / 975 375 / 375 Weight 185 lb 196 lb 9 oz 196 lb 9 oz 196 lb 3 oz Microbiology Reports for the Last 24 Hours: Microbiology 07/29/18 13:40 Blood Blood Culture - Preliminary NO GROWTH AFTER 48 HOURS 07/29/18 13:40 Blood Blood Culture - Preliminary NO GROWTH AFTER 48 HOURS Assessment and Plan (1) Sepsis Current visit: Yes Status: Acute Qualifiers: Sepsis type: sepsis due to unspecified organism Qualified Code(s): A41.9 - Sepsis, unspecified organism Category: Medical Code(s): A41.9 - Sepsis, unspecified organism (2) Ischemic cardiomyopathy Current visit: Yes Status: Acute Category: Medical Code(s): I25.5 - Ischemic cardiomyopathy (3) Systolic congestive heart failure with reduced left ventricular function, NYHA class 3 Current visit: Yes Status: Acute Category: Medical Code(s): I50.20 - Unspecified systolic (congestive) heart failure (4) Chronic pain syndrome Current visit: Yes Status: Acute Category: Medical Code(s): G89.4 - Chronic pain syndrome (5) ST elevation myocardial infarction (STEMI) Current visit: Yes Status: Acute Qualifiers: Involved coronary artery: unspecified coronary artery Qualified Code(s): I21.3 - ST elevation (STEMI) myocardial infarction of unspecified site Category: Medical Code(s): I21.3 - ST elevation (STEMI) myocardial infarction of unspecified site (6) Tobacco use Current visit: Yes Status: Acute Category: Medical Code(s): Z72.0 - Tobacco use (7) Right lower lobe pneumonia Current visit: Yes Status: Acute Qualifiers: Pneumonia type: due to unspecified organism Qualified Code(s): J18.1 - Lobar pneumonia, unspecified organism Category: Medical Code(s): J18.1 - Lobar pneumonia, unspecified organism - Assessment and plan all Dx Assessment and Plan for all problems:: will dc him home today as his WBC is unlikely secondary to sepsis and related to his recent stress from heart cath.
[2018-08-01 11:39] VITALS: BP 135/50
--- NOTE | 2018-08-01 16:04 | Discharge Summary ---
General - General Admission date:: 07/29/18 Discharge date: 08/01/18 HPI HPI: Mr. Saravia is a 73yo male patient of the [place] in [facility]. He is a chronic tobacco user with a history of chronic pain syndrome and presented to the emergency department for unrelenting chest pain and left arm discomfort. Patient related intermittent discomfort for the past several months with onset of symptoms about 1:00 yesterday afternoon that did not resolve with rest. An EKG in the emergency department showed acute ST elevation TN with inferior and anterior ST elevation. He was taken urgently to the cardiac Information Technology Professor which revealed ostial left main stenosis which was successfully stented. He was noted to have a chronic RCA occlusion with left to right collaterals. His ejection fraction was noted to be 35% with a left ventricular end-diastolic pressure of 40 mmHg. He was then admitted and cardiology would followthe patient throughout his stay.. Hospital Course Hospital Course: Cardiac cath results and plan as follows: IMPRESSION: 1. Critical ostial proximal left main disease 2. Successful stenting of the ostial proximal left main artery critical disease reduced to 0% with 1 drug-eluting stent 3. Moderate disease in the mid LAD 4. Ostially occluded dominant right coronary artery which fills via left to right collaterals 5. Severe left ventricular dysfunction with reduced ejection fraction at 35% 6. Severely elevated LVEDP PLAN: 1. Brilinta and aspirin 2. Joseph inhibitors 3. Carvedilol 4. Avoidance of tobacco products 5. Patient will benefit from low dose diuretics 6. LDL less than 55 7. Cardiac rehabilitation 8. An echocardiogram will need to BE obtained prior to discharge home to determine if patient requires a lifevest. After completion of the cath the patient did hypotension with bradycardia. This was felt to be due to the administration of several beta-blockers and resolved with Trendelenburg position, IV fluid bolus, and IV Adis-Synephrine to counteract the beta blockers. Within minutes patient's heart rate and blood pressure stabilized and he was in a sinus rhythm in the 80s. White blood cell count did elevate to 25.8. He was on IV Zosyn, vancomycin, and cefepime for the pneumonia. His white blood cell did gradually decrease to 14.5 on day of discharge. Elevation thought to be from heart injury. His blood cultures were negative. Pain and blood pressure medicines were adjusted due to the his hypotension. By 07/31/2018 patient was feeling better. He was off pressors and he was starting to eat. He ambulated to the bathroom without difficulty. He denied chest pain and shortness of breath. On 08/01/2018 patient was discharged to home. Cardiac meds as per cardiology. See discharge orders Objective Vital signs: Temp Pulse Resp BP Pulse Ox 99.1 F 81 18 135/50 L 97 08/01/18 11:39 08/01/18 11:39 08/01/18 11:39 08/01/18 11:39 08/01/18 11:39 Narrative: - Constitutional no acute distress - *Routine Respiratory Exam Present: CTA bilaterally (Anteriorly and posteriorly) - *Routine Cardiovascular Exam Present: RRR (Monitor showing sinus rhythm) - *Routine Abdominal Exam Present: soft, normoactive bowel sounds. Absent: tenderness, distended - *Routine Extremities Exam Absent: edema, calf tenderness - *Routine Neurological Exam Present: alert, oriented X3 Results Completed studies during hospitalization [Text1]: Laboratory Tests 07/29/18 07/29/18 07/30/18 03:30 03:30 07:10 Sodium 136 Potassium 3.9 Chloride 99 Carbon Dioxide 22 Anion Gap 18.9 H BUN 22 H Creatinine 1.01 Estimated Creat Clear 77 Estimated GFR 72 Glucose 124 H Magnesium 2.3 H Troponin I 40.87 H Triglycerides 139 Cholesterol 182 LDL Cholesterol 132 H VLDL Cholesterol 28 HDL Cholesterol 22 L Cholesterol/HDL Ratio 8.3 H 07/29/2018 chest x-ray IMPRESSION: 07/29/2018 echocardiogram Increased density right lung base posteriorly suspicious for an area of infiltrate. Recommend follow untCONCLUSION: 1. Technically difficult study because of the patient's factors and poor acoustic windows, repeat study with Definity contrast is recommended. 2. Mildly enlarged left atrium, normal left ventricular size, mild concentric left ventricular hypertrophy, visually estimated ejection fraction 40% with multiple segmental wall motion abnormality described above, repeat study with Definity contrast is recommended. 3. Moderate mitral and mild tricuspid regurgitation 4. Grade 1 diastolic dysfunction seen with tissue Doppler evidence of raised left atrial pressure. 5. No significant pericardial effusion noted. il clear Labs on day of discharge: Labs from last 24 hours 08/01/18 06:00 WBC 14.5 H D RBC 3.75 L Hgb 11.1 L Hct 34.4 L MCV 91.7 MCH 29.5 MCHC 32.2 RDW 14.1 Plt Count 262 MPV 8.6 Neut % (Auto) 75.6 Lymph % (Auto) 16.0 [place] % (Auto) 7.9 Eos % (Auto) 0.3 Baso % (Auto) 0.3 Neut # (Auto) 11.0 H Lymph # (Auto) 2.3 [place] # (Auto) 1.1 H Eos # (Auto) 0.0 Baso # (Auto) 0.0 Preliminary micro results at discharge 07/29/18 13:40 Blood Culture - Preliminary Blood NO GROWTH AFTER 48 HOURS 07/29/18 13:40 Blood Culture - Preliminary Blood NO GROWTH AFTER 48 HOURS DS: Diagnosis - Discharge Diagnosis (1) ST elevation myocardial infarction (STEMI) Status: Acute (2) Ischemic cardiomyopathy Status: Acute (3) Systolic congestive heart failure with reduced left ventricular function, NYHA class 3 Status: Acute (4) Sepsis Status: Acute (5) Chronic pain syndrome Status: Chronic (6) Tobacco use Status: Chronic (7) Right lower lobe pneumonia Status: Acute Discharge Plan - Patient Discharge Instructions ACTIVITY: Continue current activity DIET: continue same diet Patient Instructions: Heart Attack, Cardiac Catheterization, Coronary Stenting, DI for Pneumonia -- Adult, How to Quit Tobacco Products - Follow up Plan Disposition: Home, Self-Alf Medications: Home Medications Medication Instructions Recorded Confirmed Type Gabapentin [Neurontin 300mg 300 mg PO BID 07/29/18 07/29/18 History capsule] Prescriptions/Medication Reconciliation: New Tramadol HCl [Ultram 50mg tablet] 50 mg PO TIDP PRN tablet PRN Reason: Mild To Moderate Pain Aspirin [Aspirin 81mg EC Tab] 81 mg PO DAILY #30 tablet. Bisoprolol Fumarate [Zebeta 5mg tablet] 2.5 mg PO DAILY #30 tablet Lisinopril [Zestril 2.5mg Tablet] 2.5 mg PO DAILY #30 tablet Ticagrelor [Brilinta 90mg Tablet] 90 mg PO BID #60 tablet Atorvastatin Calcium [Lipitor 40mg Tablet] 40 mg PO HS #30 tablet Continue Gabapentin [Neurontin 300mg capsule] 300 mg PO BID
== END 2018-08-01 15:01 | disposition home or self-care (01) ==
LOC: ER 03:32 → 2ND 05:30 → ICU 07-30 19:11 → 2ND 07-31 15:46
PROVIDERS: ADMIT Emergency Medicine; ATTEND Emergency Medicine